=== PATIENT | female | born 1975 | race Caucasian/White ===

== ENCOUNTER 2018-11-26 07:55 | Day surgery (SDC) | payer MEDICAID ==
[~2018-11-26] VITALS: Ht 170.2 cm; Wt 63.0 kg
[~2018-11-26 07:55] MED LIST: ACET-2119 PO; DEXT1DRO6 OP; ESOM20CA PO; FOLI0.4T2 PO; FURO-150 PO; INSU100V43 SQ; INSU100V9 SQ; LACT10SO PO; LACT1CAP65 PO; LIDOcaine 1%/PF 5ML 10 MG/ML VIAL ONE; LINE600T11 PO; MELA3TAB64 PO; MIDO2.5T14 PO; PREG50CA PO; RIFA550T PO
[2018-11-26 08:00] VITALS: BP 116/59
[2018-11-26 08:15] VITALS: BP 116/65
[2018-11-26 08:17] VITALS: BP 115/58
[2018-11-26 10:30] VITALS: BP 114/53
== END 2018-11-26 10:30 | disposition home or self-care (01) ==
LOC: SSTAY O 07:55
PROVIDERS: ATTEND Radiology Diagnostic Radiology
DX: N17.9 Acute kidney failure, unspecified (principal); E11.9 Type 2 diabetes mellitus without complications; Z79.4 Long term (current) use of insulin; Z79.899 Other long term (current) drug therapy; Z88.8 Allergy status to other drugs, medicaments and biological substances
CPT/HCPCS: 36589